=== PATIENT | male | born 1950 | race Caucasian/White ===

== ENCOUNTER → 2016-08-27 | Outpatient (CLI) | payer MEDICARE ==
[2016-08-27 08:46] LABS: ALANINE AMINOTRANSFERASE 22 U/L (21-72); ALKALINE PHOSPHATASE 72 U/L (38-126); ANION GAP 13 (5-19); ASPARTATE AMINO TRANSFERASE 16 U/L (17-59); BILIRUBIN,TOTAL 0.7 mg/dL (0.2-1.3); BLOOD UREA NITROGEN 18 mg/dL (7-20); CALCIUM 9.9 mg/dL (8.4-10.2); CARBON DIOXIDE 27 mmol/L (22-30); CHLORIDE 95 mmol/L (98-107); CHOLESTEROL 193.52 mg/dL (0-200); CREATININE RESULT 1.31 mg/dL (0.52-1.25); Direct HDL 37 mg/dL (>40); GLUCOSE 92 mg/dL (75-110); POTASSIUM 4.7 mmol/L (3.6-5.0); SODIUM 134.6 mmol/L (137-145); TOTAL PROTEIN 7.4 g/dL (6.3-8.2); TRIGLYCERIDES 347 mg/dL (<150)
[2016-08-27 08:57] LABS: DIRECT LDL 91 mg/dL (<100)
[2016-08-27 08:58] LABS: VLDL CHOLESTEROL 69.4 mg/dL (10-31)
== END ==
LOC: OD 07:18
PROVIDERS: ATTEND Internal Medicine
DX: I10 Essential (primary) hypertension (principal); E78.00 Pure hypercholesterolemia, unspecified; Z79.899 Other long term (current) drug therapy
CPT/HCPCS: 36415; 80053; 80061

== ENCOUNTER 2016-09-09 03:00 | Emergency (ER) | payer MEDICARE ==
[2016-09-09] MEDS ORDERED: NORMAL SALINE 1000 ML 1,000 ML IV ONE (03:33)
[2016-09-09 03:58] LABS: ABSOLUTE BASOPHILS # (AUTO) 0.1 10^3/uL (0.0-0.2); ABSOLUTE EOSINOPHILS # (AUTO) 0.3 10^3/uL (0.0-0.6); ABSOLUTE LYMPHOCYTES (AUTO) 2.3 10^3/uL (0.5-4.7); ABSOLUTE MONOCYTES (AUTO) 0.6 10^3/uL (0.1-1.4); ABSOLUTE NEUT (AUTO) 6.2 10^3/uL (1.7-8.2); BASOPHILS % (AUTO) 0.9 % (0-2); EOSINOPHILS % (AUTO) 3.6 % (0-6); HEMATOCRIT 37.8 % (37.9-51.0); HEMOGLOBIN 13.2 g/dL (13.5-17.0); HGB HCT DIFFERENCE 1.8; LYMPHOCYTES % (AUTO) 23.9 % (13-45); MEAN CORPUSCULAR HEMOGLOBIN 32.7 pg (27.0-33.4); MEAN CORPUSCULAR VOLUME 93 fl (80-97); MONOCYTES % (AUTO) 6.2 % (3-13); RED BLOOD COUNT 4.05 10^6/uL (4.35-5.55); RED CELL DISTRIBUTION WIDTH 12.5 % (11.5-14.0); SEGMENTED NEUTROPHILS % (AUTO) 65.4 % (42-78); WHITE BLOOD COUNT 9.6 10^3/uL (4.0-10.5)
--- NOTE | 2016-09-09 04:07 | ER Document Report ---
ED GI/ - General Mode of Arrival: Medic Information source: Patient TRAVEL OUTSIDE OF THE [place] IN LAST 30 DAYS: No - HPI Patient complains to provider of: Abdominal pain Associated symptoms: Other - See above <CORTNEY WHITE - Last Filed: 09/09/16 04:14> <ELLEN SIERRA - Last Filed: 09/09/16 06:23> - General Chief Complaint: Abdominal Pain Stated Complaint: ABDOMINAL PAIN Notes: Patient is a 66 year old male, with a past medical history including HTN and hernia, who presents to the emergency department complaining of abdominal pain onset last night. Patient states that he had some beef stew last night and then began vomiting and having abdominal pain located around his naval. Patient also reports having diarrhea even before the stew. Per EMS patient was dizzy and diaphoretic when they arrived, patient was given Zofran en route and patient states that he is feeling better. (CORTNEY WHITE) - Related Data Allergies/Adverse Reactions: No Known Allergies Allergy (Verified 09/09/16 04:19) Home Medications: Current Home Medications Aspirin [Aspirin EC] 1 tab PO DAILY PRN 09/09/16 [History] Lisinopril/Hydrochlorothiazide [Lisinopril-Hctz 20-12.5 mg Tab] 1 each PO DAILY 09/09/16 [History] Pravastatin Sodium [Pravastatin Sodium] 1 tab PO DAILY 09/09/16 [History] Past Medical History - General Information source: Patient - Social History Smoking Status: Current Every Day Smoker Frequency of alcohol use: None Family History: Reviewed & Not Pertinent - Past Medical History Cardiac Medical History: Reports: Hx Hypercholesterolemia Past Surgical History: Reports: Hx Appendectomy, Hx Cholecystectomy - Immunizations Hx Diphtheria, Pertussis, Tetanus Vaccination: Yes Hx Pneumococcal Vaccination: 07/28/12 <CORTNEY WHITE - Last Filed: 09/09/16 04:14> Review of Systems - Review of Systems Constitutional: See HPI, Diaphoresis EENT: No symptoms reported Cardiovascular: See HPI, Dizziness Respiratory: No symptoms reported Gastrointestinal: See HPI, Abdominal pain, Diarrhea, Vomiting Genitourinary: No symptoms reported Male Genitourinary: No symptoms reported Musculoskeletal: No symptoms reported Skin: No symptoms reported Hematologic/Lymphatic: No symptoms reported Neurological/Psychological: No symptoms reported -: Yes All other systems reviewed and negative <CORTNEY WHITE - Last Filed: 09/09/16 04:14> Physical Exam - Vital signs Interpretation: Normal - General General appearance: Appears well, Alert - HEENT Head: Normocephalic, Atraumatic - Respiratory Respiratory status: No respiratory distress Chest status: Nontender Breath sounds: Normal Chest palpation: Normal - Cardiovascular Rhythm: Regular Heart sounds: Normal auscultation Murmur: No - Abdominal Inspection: Normal Distension: No distension Bowel sounds: Normal Tenderness: Tender - Tenderness to palpation to the umbilicus, hernia present no evidence of incarceration Organomegaly: No organomegaly - Extremities General upper extremity: Normal inspection General lower extremity: Normal inspection - Neurological Neuro grossly intact: Yes Cognition: Normal Orientation: AAOx4 [place] Coma Scale Eye Opening: Spontaneous [place] Coma Scale Verbal: Oriented [place] Coma Scale Motor: Obeys Commands Dede Coma Scale Total: 15 Speech: Normal - Psychological Associated symptoms: Normal affect, Normal mood - Skin Skin Temperature: Warm Skin Moisture: Dry Skin Color: Normal <CORTNEY WHITE - Last Filed: 09/09/16 04:14> Course - Laboratory Result Diagrams: 09/09/16 03:40 09/09/16 03:40 <CORTNEY WHITE - Last Filed: 09/09/16 04:14> - Laboratory Result Diagrams: 09/09/16 03:40 09/09/16 03:40 <ELLEN SIERRA - Last Filed: 09/09/16 06:23> - Re-evaluation Re-evalutation: 09/09/16 06:20 Patient comes in for some periumbilical pain, vomiting and diarrhea. Patient has no abdominal pain or TTP at this time. Feels better after 1 dose of Zofran from EMS. Is taking by mouth. Blood work within normal limits. Patient will be discharged home and is to follow-up with his doctor. Return if any worsening or concerning symptoms. Understands and agrees with plan. Stable for discharge. (ELLEN SIERRA) - Vital Signs Vital signs: Temp Pulse Resp BP Pulse Ox 97.6 F 15 115/81 99 09/09/16 03:33 09/09/16 05:01 09/09/16 05:01 09/09/16 05:01 (CORTNEY WHITE) (ELLEN SIERRA) - Laboratory Laboratory results interpreted by me: 02/13/17 03:40 RBC 4.05 L Hgb 13.2 L Hct 37.8 L (CORTNEY WHITE) (ELLEN SIERRA) Discharge <CORTNEY WHITE - Last Filed: 09/09/16 04:14> <ELLEN SIERRA - Last Filed: 09/09/16 06:23> - Discharge Clinical Impression: Vomiting Qualifiers: Vomiting type: unspecified Vomiting Intractability: non-intractable Nausea presence: with nausea Qualified Code(s): R11.2 - Nausea with vomiting, unspecified Abdominal pain Qualifiers: Abdominal location: periumbilical Qualified Code(s): R10.33 - Periumbilical pain Diarrhea Qualifiers: Diarrhea type: unspecified type Qualified Code(s): R19.7 - Diarrhea, unspecified Condition: Stable Disposition: HOME, SELF-CARE Instructions: Abdominal Pain ([facility]), Vomiting ([facility]), Diarrhea, Nonspecific ([facility]) Referrals: MALAIKA MOURA MD [Primary Care Provider] - Follow up as needed Scribe Attestation: 09/09/16 06:21 I personally performed the services described in the documentation, reviewed and edited the documentation which was dictated to the scribe in my presence, and it accurately records my words and actions. (ELLEN SIERRA) Scribe Documentation - Scribe Written by Scribe:: pedrito Odonnell, 09/09/16, 0413 acting as scribe for :: Federico <CORTNEY WHITE - Last Filed: 09/09/16 04:14>
[2016-09-09 04:12] LABS: PROTHROMBIN TIME 12.7 SEC (11.4-15.4)
[2016-09-09 05:00] LABS: ALANINE AMINOTRANSFERASE 22 U/L (21-72); ALBUMIN 3.2 g/dL (3.5-5.0); ALKALINE PHOSPHATASE 60 U/L (38-126); ASPARTATE AMINO TRANSFERASE 12 U/L (17-59); BILIRUBIN,TOTAL 0.5 mg/dL (0.2-1.3); BLOOD UREA NITROGEN 19 mg/dL (7-20); CALCIUM 9.2 mg/dL (8.4-10.2); CREATININE RESULT 1.26 mg/dL (0.52-1.25); GLUCOSE 98 mg/dL (75-110); LIPASE 210.7 U/L (23-300); POTASSIUM 4.3 mmol/L (3.6-5.0); TOTAL PROTEIN 6.3 g/dL (6.3-8.2)
[2016-09-09 05:42] LABS: APPEARANCE,URINE CLEAR; BILIRUBIN,URINE NEGATIVE (NEGATIVE); GLUCOSE, URINE NEGATIVE (NEGATIVE); KETONES,URINE NEGATIVE (NEGATIVE); LEUKOCYTE ESTERASE,URINE NEGATIVE (NEGATIVE); NITRITE,URINE NEGATIVE (NEGATIVE); PROTEIN,URINE NEGATIVE (NEGATIVE); UROBILINOGEN,URINE NEGATIVE mg/dL (<2.0)
[2016-09-09 05:43] LABS: URINE SPECIFIC GRAVITY 1.004
[2016-09-09] MEDS ORDERED: ONDANSETRON ODT 4 MG TAB (6 TAB/DSPK) PO PRN (06:21)
[2016-09-09 06:35] LABS: ANION GAP 6 (5-19); CARBON DIOXIDE 27 mmol/L (22-30); CHLORIDE 100 mmol/L (98-107); SODIUM 133.2 mmol/L (137-145)
[2016-09-09 07:13] VITALS: BP 116/77
--- NOTE | 2016-09-11 00:05 | EKG REPORT ---
SEVERITY:- ABNORMAL ECG - SINUS RHYTHM MULTIPLE ATRIAL PREMATURE COMPLEXES : Confirmed by: Sho Larry 11-Sep-2016 00:04:37
== END 2016-09-09 07:15 | disposition home or self-care (01) ==
LOC: ER 03:00
DX: R10.33 Periumbilical pain (principal); I10 Essential (primary) hypertension; R11.10 Vomiting, unspecified; K46.9 Unspecified abdominal hernia without obstruction or gangrene; R19.7 Diarrhea, unspecified; R61 Generalized hyperhidrosis; R42 Dizziness and giddiness; F17.200 Nicotine dependence, unspecified, uncomplicated; Z90.49 Acquired absence of other specified parts of digestive tract; Z87.19 Personal history of other diseases of the digestive system
CPT/HCPCS: 93005; 99284; 96360; 36415; 83690; 85025; 85610; 80053; 81001; 93010; J7030; A9270

== ENCOUNTER 2016-11-01 11:51 | Inpatient (IN) | payer MEDICARE ==
[2016-11-01] MEDS ORDERED: NORMAL SALINE 1000 ML 1,000 ML IV ONE ×2 (12:25→14:07)
--- NOTE | 2016-11-01 13:17 | ER Document Report ---
ED General - General Chief Complaint: Shortness Of Breath Stated Complaint: VOMITING Time seen by provider: 13:17 Mode of Arrival: Ambulatory Information source: Patient Notes: 66-year-old male with vomiting and diarrhea for 6 days. This morning after vomiting 3 times and having 3 episodes of diarrhea he felt very weak, dizzy while he was on the stairs, and shortness of breath. He was told by his doctor 2 days ago that he had a viral intestinal infection. No recent antibiotics. No history of Crohn's, colitis, diverticulitis. No fever or chills. No chest pain. Mild abdominal discomfort. History of appendectomy and cholecystectomy. History of hypertension and hyperlipidemia . He takes lisinopril/HCTZ., And Pravastatin. TRAVEL OUTSIDE OF THE [place] IN LAST 30 DAYS: No - Related Data Allergies/Adverse Reactions: No Known Allergies Allergy (Verified 11/01/16 11:56) Home Medications: Current Home Medications Lisinopril/Hydrochlorothiazide [Zestoretic 20-12.5 mg Tablet] 1 tab PO DAILY 02/10 [History] Pravastatin Sodium [Pravachol] 20 mg PO QPM 11/01/16 [History] Past Medical History - General Information source: Patient - Social History Smoking Status: Current Every Day Smoker Frequency of alcohol use: None Drug Abuse: None Lives with: Alone Family History: Reviewed & Not Pertinent Patient has suicidal ideation: No Patient has homicidal ideation: No - Past Medical History Cardiac Medical History: Reports: Hx Hypercholesterolemia, Hx Hypertension Renal/ Medical History: Denies: Hx Peritoneal Dialysis Past Surgical History: Reports: Hx Appendectomy, Hx Cholecystectomy - Immunizations Hx Diphtheria, Pertussis, Tetanus Vaccination: Yes Hx Pneumococcal Vaccination: 07/28/12 Review of Systems - Review of Systems Constitutional: See HPI EENT: No symptoms reported Cardiovascular: No symptoms reported Respiratory: No symptoms reported Gastrointestinal: See HPI Genitourinary: No symptoms reported Male Genitourinary: No symptoms reported Musculoskeletal: No symptoms reported Skin: No symptoms reported Hematologic/Lymphatic: No symptoms reported Neurological/Psychological: No symptoms reported Physical Exam - Vital signs Vitals: Temp Pulse Resp BP Pulse Ox 97.4 F 59 L 16 110/64 100 11/01/16 11:57 11/01/16 11:57 11/01/16 11:57 11/01/16 11:57 11/01/16 11:57 Interpretation: Normal - General General appearance: Alert In distress: None - HEENT Head: Normocephalic, Atraumatic Eyes: Normal Conjunctiva: Normal Pupils: PERRL Mucous membranes: Normal Pharynx: Normal Neck: Supple. No: Lymphadenopathy - Respiratory Respiratory status: No respiratory distress Chest status: Nontender Breath sounds: Normal Chest palpation: Normal - Cardiovascular Rhythm: Regular Heart sounds: Normal auscultation Murmur: No - Abdominal Inspection: Normal Distension: No distension Bowel sounds: Normal Tenderness: Tender - Mild right middle to lower quadrant Organomegaly: No organomegaly - Back Back: Normal, Nontender. No: CVA tenderness - Extremities General upper extremity: Normal inspection, Nontender, Normal color, Normal ROM , Normal temperature General lower extremity: Normal inspection, Nontender, Normal color, Normal ROM , Normal temperature, Normal weight bearing. No: Eitan's sign - Neurological Neuro grossly intact: Yes Cognition: Normal Orientation: AAOx4 [place] Coma Scale Eye Opening: Spontaneous [place] Coma Scale Verbal: Oriented [place] Coma Scale Motor: Obeys Commands [place] Coma Scale Total: 15 Speech: Normal Motor strength normal: LUE, RUE, LLE, RLE Sensory: Normal - Psychological Associated symptoms: Normal affect, Normal mood - Skin Skin Temperature: Warm Skin Moisture: Dry Skin Color: Normal Skin irregularity: negative: Rash Course - Re-evaluation Re-evalutation: 11/01/16 14:[address] Candelario and he recommended admission and I spoke to Dr. Morrison who will admit the patient for observation. 11/02/16 10:14 - Vital Signs Vital signs: Temp Pulse Resp BP Pulse Ox 97.7 F 60 16 120/60 100 11/02/16 07:25 11/02/16 07:25 11/02/16 07:25 11/02/16 07:25 11/02/16 07:25 - Laboratory Result Diagrams: 11/01/16 12:43 11/02/16 01:47 Laboratory results interpreted by me: 11/01/16 11/01/16 11/01/16 12:43 12:43 13:09 Seg Neutrophils % 41.7 L Sodium 124.7 L Chloride 87 L Creatine Kinase 324 H Urine Ketones TRACE H - EKG Interpretation by Me EKG shows normal: Sinus rhythm Rhythm: NSR, APC's Discharge - Discharge Clinical Impression: Vomiting and diarrhea, weak and dizzy, low chloride, Gait disturbance Syncopal episodes Qualifiers: Syncope type: unspecified Qualified Code(s): R55 - Syncope and collapse Admitting Provider: Hospitalist Unit Admitted: Telemetry
[2016-11-01 13:19] LABS: ABSOLUTE LYMPHOCYTES (AUTO) 2.1 10^3/uL (0.5-4.7); ABSOLUTE MONOCYTES (AUTO) 0.6 10^3/uL (0.1-1.4); BASOPHILS % (AUTO) 0.5 % (0-2); EOSINOPHILS % (AUTO) 0.2 % (0-6); HEMATOCRIT 41.3 % (37.9-51.0); HEMOGLOBIN 14.7 g/dL (13.5-17.0); HGB HCT DIFFERENCE 2.8; LYMPHOCYTES % (AUTO) 44.9 % (13-45); MEAN CORPUSCULAR HEMOGLOBIN 32.2 pg (27.0-33.4); MEAN CORPUSCULAR HGB CONC 35.7 g/dL (32.0-36.0); MEAN CORPUSCULAR VOLUME 90 fl (80-97); MONOCYTES % (AUTO) 12.7 % (3-13); RED BLOOD COUNT 4.57 10^6/uL (4.35-5.55); RED CELL DISTRIBUTION WIDTH 12.4 % (11.5-14.0); SEGMENTED NEUTROPHILS % (AUTO) 41.7 % (42-78); WHITE BLOOD COUNT 4.7 10^3/uL (4.0-10.5)
[2016-11-01 13:36] LABS: ALANINE AMINOTRANSFERASE 51 U/L (21-72); ALBUMIN 4.6 g/dL (3.5-5.0); ALKALINE PHOSPHATASE 87 U/L (38-126); ANION GAP 13 (5-19); ASPARTATE AMINO TRANSFERASE 51 U/L (17-59); BILIRUBIN,DIRECT 0.3 mg/dL (0.0-0.4); BILIRUBIN,TOTAL 0.6 mg/dL (0.2-1.3); BLOOD UREA NITROGEN 14 mg/dL (7-20); CALCIUM 9.7 mg/dL (8.4-10.2); CARBON DIOXIDE 25 mmol/L (22-30); CHLORIDE 87 mmol/L (98-107); CREATINE KINASE 324 U/L (55-170); CREATININE RESULT 0.97 mg/dL (0.52-1.25); GLUCOSE 110 mg/dL (75-110); LIPASE 217.7 U/L (23-300); POTASSIUM 3.6 mmol/L (3.6-5.0); SODIUM 124.7 mmol/L (137-145); TOTAL PROTEIN 7.8 g/dL (6.3-8.2)
[2016-11-01 13:46] LABS: APPEARANCE,URINE CLEAR; BILIRUBIN,URINE NEGATIVE (NEGATIVE); GLUCOSE, URINE NEGATIVE (NEGATIVE); KETONES,URINE TRACE mg/dL (NEGATIVE); LEUKOCYTE ESTERASE,URINE NEGATIVE (NEGATIVE); NITRITE,URINE NEGATIVE (NEGATIVE); PROTEIN,URINE NEGATIVE (NEGATIVE); UROBILINOGEN,URINE NEGATIVE mg/dL (<2.0)
[2016-11-01 13:49] LABS: TROPONIN I < 0.012 ng/mL
[2016-11-01] MEDS ORDERED: NORMAL SALINE 1000 ML 500 ML IV ONE (14:08)
[2016-11-01] MEDS ORDERED: ONDANSETRON 4 MG TAB.RAPDIS PO ONE (14:16)
[2016-11-01] MEDS ORDERED: ONDANSETRON HCL INJ/PF 4 MG/2 ML SDV IV PRN (16:11)
--- NOTE | 2016-11-01 16:26 | PDOC H&P ---
History of Present Illness Admission Date/PCP: 11/01/16 15:27 CALVIN MARKS MD Patient complains of: Nausea and vomiting History of Present Illness: NADINE MUKHERJEE is a 66 year old male, with history of hypertension and hyperlipidemia has been sick with nausea and vomiting and diarrhea for the past week. There is no recent antibiotic intake, nor travel. Patient reports not being exposed to someone sick with diarrhea. About a week ago patient after eating at [facility] started to develop abdominal cramping and pain with subsequent nausea and vomiting. Patient a previous family but they ate something different and they don't have symptoms. Symptoms persisted with associated low-grade fever with some soreness in the throat due to vomiting. Subsequently the patient developed progressive weakness and decrease in appetite. There is no melena hematochezia or hematemesis noted. The patient's nausea and vomiting is improving, as well as the diarrhea and abdominal pain, however he started feeling lightheaded and dizzy and therefore he presents to the hospital for evaluation. In the emergency room serum sodium was low at 124 and the patient was referred for admission. Past Medical History Past Medical History: Medication reconciliation pending verification from the patient's pharmacist Cardiac Medical History: Reports: Hyperlipidema, Hypertension Infectious Medical History: Reports: Other - Childhood polio Past Surgical History Past Surgical History: Reports: Appendectomy, Cholecystectomy Social History Information Source: Patient Smoking Status: Current Some Day Smoker Frequency of Alcohol Use: None Hx Recreational Drug Use: No Drugs: None Hx Prescription Drug Abuse: No Family History Family History: Hypertension Parental Family History Reviewed: Yes Children Family History Reviewed: Yes Sibling(s) Family History Reviewed.: Yes Medication/Allergy Allergies/Adverse Reactions: No Known Allergies Allergy (Verified 11/01/16 11:56) Review of Systems Constitutional: PRESENT: chills - Occasional, fever(s) - Low grade but improving , headache(s) - Occasional, weakness - Generalized. ABSENT: night sweats, weight gain, weight loss Eyes: ABSENT: visual disturbances Ears: ABSENT: hearing changes Nose, Mouth, and Throat: PRESENT: sore throat - Improving Cardiovascular: ABSENT: chest pain, dyspnea on exertion, edema, orthropnea, palpitations Respiratory: PRESENT: cough - Occasional. ABSENT: dyspnea, hemoptysis Gastrointestinal: PRESENT: abdominal pain, diarrhea, nausea, vomiting. ABSENT: coffee ground emesis, constipation, hematemesis, hematochezia, melena Genitourinary: ABSENT: difficulty urinating, dysuria, hematuria Musculoskeletal: ABSENT: joint swelling Integumentary: ABSENT: rash, wounds Neurological: PRESENT: weakness - Generalized. ABSENT: abnormal gait, abnormal speech, confusion, dizziness, focal weakness, syncope Psychiatric: ABSENT: anxiety, depression, homidical ideation, suicidal ideation Endocrine: ABSENT: cold intolerance, heat intolerance, polydipsia, polyuria Hematologic/Lymphatic: ABSENT: easy bleeding, easy bruising Physical Exam Vital Signs: Temp Pulse Resp BP Pulse Ox 98.4 F 59 L 16 110/64 100 11/01/16 15:54 11/01/16 11:57 11/01/16 11:57 11/01/16 11:57 11/01/16 11:57 General appearance: PRESENT: no acute distress, cooperative, thin Head exam: PRESENT: atraumatic, normocephalic Eye exam: PRESENT: conjunctiva pink, EOMI, PERRLA. ABSENT: scleral icterus Ear exam: PRESENT: normal external ear exam, other - Cerumen on both ear canal. ABSENT: drainage Mouth exam: PRESENT: dry mucosa, neck supple, tongue midline Throat exam: ABSENT: post pharyngeal erythema, tonsillar erythema Neck exam: ABSENT: carotid bruit, JVD, lymphadenopathy, thyromegaly Respiratory exam: PRESENT: clear to auscultation mt. ABSENT: rales, rhonchi, wheezes Cardiovascular exam: PRESENT: RRR, +S1, +S2. ABSENT: diastolic murmur, gallop, rubs, systolic murmur Pulses: PRESENT: normal dorsalis pedis pul Vascular exam: PRESENT: normal capillary refill GI/Abdominal exam: PRESENT: hyperactive bowel sounds, soft, tenderness - Minimal generalized. ABSENT: distended, guarding, mass, organolmegaly, rebound Rectal exam: PRESENT: deferred Extremities exam: PRESENT: full ROM. ABSENT: calf tenderness, clubbing, pedal edema Neurological exam: PRESENT: alert, awake, oriented to person, oriented to place , oriented to time, oriented to situation Psychiatric exam: PRESENT: appropriate affect, normal mood. ABSENT: homicidal ideation, suicidal ideation Skin exam: PRESENT: dry, intact, warm. ABSENT: cyanosis, rash Results Impressions: Chest X-Ray 11/01/16 12:19 IMPRESSION: NO SIGNIFICANT RADIOGRAPHIC FINDING IN THE CHEST. Assessment & Plan - Diagnosis (1) Hyponatremia Is this a current diagnosis for this admission?: Yes (2) Vomiting and diarrhea Is this a current diagnosis for this admission?: Yes (3) Generalized abdominal pain Is this a current diagnosis for this admission?: Yes (4) Essential hypertension Is this a current diagnosis for this admission?: Yes (5) Hyperlipidemia Qualifiers: Hyperlipidemia type: unspecified Qualified Code(s): E78.5 - Hyperlipidemia, unspecified Is this a current diagnosis for this admission?: Yes (6) Migraine Is this a current diagnosis for this admission?: Yes - Time Time Spent: 30 to 50 Minutes - Plan Summary Plan Summary: Patient will be admitted to observation. We will hydrate the patient with normal saline. We will monitor serum sodiums serially. In the meantime we will just check stool culture as well as Clostridium difficile toxin. Patient may have infectious colitis, we will begin Flagyl and ciprofloxacin intravenously. DVT prophylaxis with Lovenox will be placed. Further testing depends on the initial evaluation and response to treatment as outlined above.
[2016-11-01 18:42] LABS: ANION GAP 13 (5-19); BLOOD UREA NITROGEN 12 mg/dL (7-20); CALCIUM 8.9 mg/dL (8.4-10.2); CARBON DIOXIDE 23 mmol/L (22-30); CHLORIDE 93 mmol/L (98-107); GLUCOSE 104 mg/dL (75-110); POTASSIUM 4.4 mmol/L (3.6-5.0)
[2016-11-01] MEDS: NORMAL SALINE 1000 ML 1,000 ML IV PRN (18:49)
[2016-11-01] MEDS: METRONIDAZOLE 500 MG/NS RTU 100 ML IV SCH ×2 (18:49→23:24)
[2016-11-01] MEDS: CIPROFLOXACIN 400 MG/D5W RTU 200 ML IV SCH (21:57)
[2016-11-01] MEDS: ACETAMINOPHEN 325 MG TABLET PO PRN (23:24)
[2016-11-02] MEDS ORDERED: BENZOCAINE/MENTHOL SORE THROAT LOZENGE BUCCAL PRN (01:57)
[2016-11-02 02:32] LABS: ANION GAP 10 (5-19); BLOOD UREA NITROGEN 11 mg/dL (7-20); CALCIUM 8.6 mg/dL (8.4-10.2); CARBON DIOXIDE 24 mmol/L (22-30); CHLORIDE 95 mmol/L (98-107); CREATININE RESULT 0.97 mg/dL (0.52-1.25); GLUCOSE 100 mg/dL (75-110); POTASSIUM 4.6 mmol/L (3.6-5.0)
[2016-11-02] MEDS ORDERED: LANSOPRAZOLE 30 MG TAB.RAP.DR PO SCH (06:00)
[2016-11-02] MEDS: METRONIDAZOLE 500 MG/NS RTU 100 ML IV SCH ×4 (06:12→23:55)
[2016-11-02] MEDS: NORMAL SALINE 1000 ML 1,000 ML IV PRN (06:14)
--- NOTE | 2016-11-02 06:17 | EKG REPORT ---
SEVERITY:- ABNORMAL ECG - SINUS RHYTHM MULTIPLE ATRIAL PREMATURE COMPLEXES : Confirmed by: Sho Larry 02-Nov-2016 06:17:04
[2016-11-02] MEDS: CIPROFLOXACIN 400 MG/D5W RTU 200 ML IV SCH ×2 (09:10→21:07)
[2016-11-02] MEDS: ENOXAPARIN SODIUM INJ 40 MG/0.4 ML DISP.SYRIN SUBCUT SCH (09:10)
--- NOTE | 2016-11-02 10:07 | PDOC PROGRESS REPORT ---
Subjective Progress Note for:: 11/02/16 Subjective:: Patient tolerated some oral intake, however he does not want gello nor yougart. Patient wanting to try more solid diet. There is no more diarrhea, still with some nausea, abdominal pain is less. No chills or fever. Physical Exam Vital Signs: Temp Pulse Resp BP Pulse Ox 97.7 F 60 16 120/60 100 11/02/16 07:25 11/02/16 07:25 11/02/16 07:25 11/02/16 07:25 11/02/16 07:25 Intake & Output 11/01/16 11/02/16 11/03/16 06:59 06:59 06:59 Intake Total 550 Balance 550 Weight 72.3 kg General appearance: PRESENT: no acute distress, cooperative Head exam: PRESENT: normocephalic Eye exam: PRESENT: EOMI, PERRLA Mouth exam: PRESENT: moist, neck supple Neck exam: ABSENT: JVD Respiratory exam: PRESENT: clear to auscultation mt Cardiovascular exam: PRESENT: RRR. ABSENT: gallop GI/Abdominal exam: PRESENT: hypoactive bowel sounds, soft, tenderness - Minimal discomfort to palpation periumbilically Extremities exam: ABSENT: pedal edema Neurological exam: PRESENT: alert, awake, oriented to person, oriented to place , oriented to time, oriented to situation Skin exam: PRESENT: dry, warm. ABSENT: cyanosis Results Laboratory Results: 11/01/16 11/02/16 11/02/16 17:48 01:47 01:47 Sodium 129.0 L 129.0 L Potassium 4.4 4.6 Chloride 93 L 95 L Carbon Dioxide 23 24 Anion Gap 13 10 BUN 12 11 Creatinine 0.90 0.97 Est GFR ( Amer) > 60 > 60 Est GFR (Non-Af Amer) > 60 > 60 Glucose 104 100 Calcium 8.9 8.6 TSH 1.76 Impressions: Chest X-Ray 11/01/16 12:19 IMPRESSION: NO SIGNIFICANT RADIOGRAPHIC FINDING IN THE CHEST. Assessment & Plan - Diagnosis (1) Hyponatremia Is this a current diagnosis for this admission?: Yes (2) Vomiting and diarrhea Is this a current diagnosis for this admission?: Yes (3) Generalized abdominal pain Is this a current diagnosis for this admission?: Yes (4) Essential hypertension Is this a current diagnosis for this admission?: Yes (5) Hyperlipidemia Qualifiers: Qualified Code(s): E78.5 - Hyperlipidemia, unspecified Is this a current diagnosis for this admission?: Yes (6) Migraine Is this a current diagnosis for this admission?: Yes - Time Time Spent with patient: 25-34 minutes - Plan Summary Plan Summary: Continue IV hydration, antibiotic, advance diet. Obtain CT of the abdomen and pelvis without contrast, recheck electrolytes in the morning. Serum sodium is improving. Continue supportive care. Discharge home when symptoms improve or tolerates oral intake.
[2016-11-02 10:10] LABS: ANION GAP 7 (5-19); BLOOD UREA NITROGEN 10 mg/dL (7-20); CALCIUM 8.9 mg/dL (8.4-10.2); CARBON DIOXIDE 27 mmol/L (22-30); CHLORIDE 97 mmol/L (98-107); CREATININE RESULT 0.91 mg/dL (0.52-1.25); GLUCOSE 102 mg/dL (75-110); POTASSIUM 4.3 mmol/L (3.6-5.0); SODIUM 130.9 mmol/L (137-145)
[2016-11-02] MEDS ORDERED: METOCLOPRAMIDE HCL INJ/PF 10 MG/2 ML SDV ONE (10:40)
[2016-11-02] MEDS ORDERED: METOCLOPRAMIDE HCL INJ/PF 10 MG/2 ML SDV IV PRN (10:42)
[2016-11-02] MEDS ORDERED: PANTOPRAZOLE SODIUM 40 MG VIAL IV ONE (11:30)
[2016-11-02] MEDS ORDERED: METOCLOPRAMIDE HCL INJ/PF 10 MG/2 ML SDV IV ONE (11:30)
[2016-11-02] MEDS: ACETAMINOPHEN 325 MG TABLET PO PRN ×2 (18:52→21:08)
[2016-11-02] MEDS: PANTOPRAZOLE SODIUM 40 MG VIAL IV SCH (21:08)
[2016-11-02] MEDS: METOCLOPRAMIDE HCL INJ/PF 10 MG/2 ML SDV IV PRN (21:33)
[2016-11-03 00:34] LABS: ANION GAP 8 (5-19); BLOOD UREA NITROGEN 11 mg/dL (7-20); CALCIUM 8.5 mg/dL (8.4-10.2); CARBON DIOXIDE 25 mmol/L (22-30); CHLORIDE 98 mmol/L (98-107); CREATINE KINASE 147 U/L (55-170); CREATININE RESULT 0.94 mg/dL (0.52-1.25); GLUCOSE 102 mg/dL (75-110); POTASSIUM 3.8 mmol/L (3.6-5.0); SODIUM 130.5 mmol/L (137-145)
[2016-11-03 00:47] LABS: CREATINE KINASE MB 0.62 ng/mL (<4.55)
[2016-11-03 00:48] LABS: TROPONIN I < 0.012 ng/mL
[2016-11-03] MEDS ORDERED: POTASSIUM CHLORIDE 20 MEQ/15 ML UDCUP PO ONE (01:45)
[2016-11-03] MEDS: METRONIDAZOLE 500 MG/NS RTU 100 ML IV SCH ×3 (05:24→18:09)
[2016-11-03 07:53] LABS: ANION GAP 9 (5-19); BLOOD UREA NITROGEN 8 mg/dL (7-20); CALCIUM 8.3 mg/dL (8.4-10.2); CARBON DIOXIDE 23 mmol/L (22-30); CHLORIDE 101 mmol/L (98-107); CREATININE RESULT 0.84 mg/dL (0.52-1.25); GLUCOSE 92 mg/dL (75-110); POTASSIUM 3.7 mmol/L (3.6-5.0); SODIUM 133.1 mmol/L (137-145)
[2016-11-03] MEDS: NORMAL SALINE 1000 ML 1,000 ML IV PRN (08:18)
[2016-11-03] MEDS: ENOXAPARIN SODIUM INJ 40 MG/0.4 ML DISP.SYRIN SUBCUT SCH (08:18)
--- NOTE | 2016-11-03 08:39 | EKG REPORT ---
SEVERITY:- ABNORMAL ECG - SINUS RHYTHM MULTIPLE ATRIAL PREMATURE COMPLEXES : Confirmed by: Sho Larry 03-Nov-2016 08:38:39
[2016-11-03] MEDS: METOCLOPRAMIDE HCL INJ/PF 10 MG/2 ML SDV IV PRN ×2 (09:16→18:09)
[2016-11-03] MEDS: CIPROFLOXACIN 400 MG/D5W RTU 200 ML IV SCH ×2 (09:19→22:53)
[2016-11-03] MEDS: METOPROLOL TARTRATE 25 MG TABLET PO SCH ×2 (09:21→22:53)
[2016-11-03] MEDS: ACETAMINOPHEN 325 MG TABLET PO PRN (09:22)
[2016-11-03] MEDS: PANTOPRAZOLE SODIUM 40 MG VIAL IV SCH ×2 (13:40→22:53)
--- NOTE | 2016-11-03 14:34 | PDOC DISCHARGE SUMMARY ---
General - Admit/Disc Date/PCP Admission Date/Primary Care Provider: 11/01/16 17:38 CALVIN MARKS MD Discharge Date: 11/03/16 - Discharge Diagnosis (1) Hyponatremia Is this a current diagnosis for this admission?: Yes (2) Vomiting and diarrhea Is this a current diagnosis for this admission?: Yes (3) Generalized abdominal pain Is this a current diagnosis for this admission?: Yes (4) Essential hypertension Is this a current diagnosis for this admission?: Yes (5) Hyperlipidemia Is this a current diagnosis for this admission?: Yes (6) Migraine Is this a current diagnosis for this admission?: Yes - Additional Information Discharge Diet: Other (Comments) - low-salt Discharge Activity: Activity As Tolerated, Balance Activity w/Rest Home Medications: Pravastatin Sodium [Pravachol] 20 mg PO QPM 11/01/16 Ciprofloxacin HCl [Cipro 500 mg Tablet] 500 mg PO BID #20 tablet 11/03/16 Metoprolol Tartrate [Lopressor 25 mg Tablet] 25 mg PO Q12 #60 tablet 11/03/16 Metronidazole [Flagyl 500 mg Tablet] 500 mg PO TID #30 tablet 11/03/16 Additional Information: Follow up final report of blood cultures as outpatient with primary care physician History of Present Illness Patient complains of: Nausea vomiting and diarrhea History of Present Illness: NADINE MUKHERJEE is a 66 year old male, with history of hypertension and hyperlipidemia has been sick with nausea and vomiting and diarrhea for the past week. There is no recent antibiotic intake, nor travel. Patient reports not being exposed to someone sick with diarrhea. About a week ago patient after eating at [facility] started to develop abdominal cramping and pain with subsequent nausea and vomiting. Patient a previous family but they ate something different and they don't have symptoms. Symptoms persisted with associated low-grade fever with some soreness in the throat due to vomiting. Subsequently the patient developed progressive weakness and decrease in appetite. There is no melena hematochezia or hematemesis noted. The patient's nausea and vomiting is improving, as well as the diarrhea and abdominal pain, however he started feeling lightheaded and dizzy and therefore he presents to the hospital for evaluation. In the emergency room serum sodium was low at 124 and the patient was referred for admission. Hospital Course Hospital Course: The patient was admitted to telemetry. The patient was started on IV fluids with normal saline. Serial sodium was monitored and it was improving. The patient was started on intravenous antibiotic for possible infectious diarrhea. After 48 hours of treatment the patient improved significantly. The diarrhea resolved, abdominal pain resolved. Diet was advanced and the patient tolerated it. He has a CT of the abdomen and pelvis which was negative for any abnormality acutely. He was advised to stop taking his PREETHI inhibitor and diuretic likely causing the hyponatremia. He was noted to have some PACs on the monitor, he was started on metoprolol for blood pressure control. Magnesium and potassium are normal. The rest of the hospital stays unremarkable. Physical Exam Vital Signs: Temp Pulse Resp BP Pulse Ox 97.5 F 93 16 119/63 100 11/03/16 12:00 11/03/16 12:00 11/03/16 12:00 11/03/16 12:00 11/03/16 12:00 Intake & Output 11/02/16 11/03/16 11/04/16 06:59 06:59 06:59 Intake Total 550 4840 Output Total 1600 Balance 550 3240 Weight 72.3 kg 69.3 kg General appearance: PRESENT: no acute distress, cooperative Head exam: PRESENT: normocephalic Eye exam: PRESENT: EOMI Mouth exam: PRESENT: moist, neck supple Neck exam: ABSENT: JVD Respiratory exam: PRESENT: clear to auscultation mt Cardiovascular exam: PRESENT: RRR. ABSENT: gallop GI/Abdominal exam: PRESENT: hyperactive bowel sounds, soft. ABSENT: distended, tenderness Extremities exam: ABSENT: pedal edema Neurological exam: PRESENT: alert, awake, oriented to person, oriented to place , oriented to time, oriented to situation Skin exam: PRESENT: dry, warm. ABSENT: cyanosis Results Laboratory Results: 11/03/16 06:45 11/03/16 11/03/16 00:01 06:45 Sodium 130.5 L 133.1 L Potassium 3.8 3.7 Chloride 98 101 Carbon Dioxide 25 23 Anion Gap 8 9 BUN 11 8 Creatinine 0.94 0.84 Est GFR ( Amer) > 60 > 60 Est GFR (Non-Af Amer) > 60 > 60 Glucose 102 92 Calcium 8.5 8.3 L Magnesium 2.0 11/03/16 11/03/16 00:01 00:01 Creatine Kinase 147 CK-MB (CK-2) 0.62 Troponin I < 0.012 Impressions: Chest X-Ray 11/01/16 12:19 IMPRESSION: NO SIGNIFICANT RADIOGRAPHIC FINDING IN THE CHEST. Abdomen/Pelvis CT 11/02/16 00:00 IMPRESSION: No acute abnormality in the abdomen or pelvis. Qualifiers PATEINT BEING DISCHARGED WITH ANY OF THE FOLLOWING DIAGNOSIS?: No Plan Discharge Plan: Follow-up with primary care physician in one week. Time Spent: Less than 30 Minutes
--- NOTE | 2016-11-03 16:56 | PDOC PROGRESS REPORT ---
Subjective Progress Note for:: 11/03/16 Subjective:: Patient reports that he feels better without any nausea and vomiting, abdominal pain resolved and diarrhea resolved. Tolerated oral intake well and wants to go home. Right after discharge getting out of the room he had an episode of vomiting. Physical Exam Vital Signs: Temp Pulse Resp BP Pulse Ox 97.5 F 93 16 119/63 100 11/03/16 15:21 11/03/16 15:21 11/03/16 15:21 11/03/16 15:21 11/03/16 15:21 Intake & Output 11/02/16 11/03/16 11/04/16 06:59 06:59 06:59 Intake Total 550 4840 Output Total 1600 Balance 550 3240 Weight 72.3 kg 69.3 kg General appearance: PRESENT: no acute distress, cooperative Head exam: PRESENT: normocephalic Eye exam: PRESENT: EOMI Mouth exam: PRESENT: moist, neck supple Neck exam: ABSENT: JVD Respiratory exam: PRESENT: clear to auscultation mt. ABSENT: rhonchi, wheezes Cardiovascular exam: PRESENT: RRR. ABSENT: gallop GI/Abdominal exam: PRESENT: soft. ABSENT: distended Extremities exam: ABSENT: pedal edema Neurological exam: PRESENT: alert, awake, oriented to situation Skin exam: PRESENT: dry, warm. ABSENT: cyanosis Results Laboratory Results: 11/03/16 06:45 11/03/16 11/03/16 00:01 06:45 Sodium 130.5 L 133.1 L Potassium 3.8 3.7 Chloride 98 101 Carbon Dioxide 25 23 Anion Gap 8 9 BUN 11 8 Creatinine 0.94 0.84 Est GFR ( Amer) > 60 > 60 Est GFR (Non-Af Amer) > 60 > 60 Glucose 102 92 Calcium 8.5 8.3 L Magnesium 2.0 11/03/16 11/03/16 00:01 00:01 Creatine Kinase 147 CK-MB (CK-2) 0.62 Troponin I < 0.012 Impressions: Chest X-Ray 11/01/16 12:19 IMPRESSION: NO SIGNIFICANT RADIOGRAPHIC FINDING IN THE CHEST. Abdomen/Pelvis CT 11/02/16 00:00 IMPRESSION: No acute abnormality in the abdomen or pelvis. Assessment & Plan - Diagnosis (1) Hyponatremia Is this a current diagnosis for this admission?: Yes (2) Vomiting and diarrhea Is this a current diagnosis for this admission?: Yes (3) Generalized abdominal pain Is this a current diagnosis for this admission?: Yes (4) Essential hypertension Is this a current diagnosis for this admission?: Yes (5) Hyperlipidemia Qualifiers: Hyperlipidemia type: unspecified Qualified Code(s): E78.5 - Hyperlipidemia, unspecified Is this a current diagnosis for this admission?: Yes (6) Migraine Is this a current diagnosis for this admission?: Yes - Time Time Spent with patient: 15-24 minutes - Plan Summary Plan Summary: We will hold discharge plan for now. We will recheck amylase and lipase, as well as liver function test. We will consult gastroenterology in the morning. I will put the patient on liquid diet. Continue intravenous proton pump inhibitor. Continue antibiotics intravenously.
[2016-11-03] MEDS ORDERED: DEXAMETHASONE SOD PHOS INJ 10 MG/1 ML VIAL IV ONE (17:15)
[2016-11-03 17:16] LABS: ABSOLUTE EOSINOPHILS # (AUTO) 0.1 10^3/uL (0.0-0.6); ABSOLUTE LYMPHOCYTES (AUTO) 2.1 10^3/uL (0.5-4.7); ABSOLUTE MONOCYTES (AUTO) 0.5 10^3/uL (0.1-1.4); ABSOLUTE NEUT (AUTO) 1.6 10^3/uL (1.7-8.2); BASOPHILS % (AUTO) 0.6 % (0-2); HEMATOCRIT 34.6 % (37.9-51.0); HGB HCT DIFFERENCE 2.3; LYMPHOCYTES % (AUTO) 48.2 % (13-45); MEAN CORPUSCULAR HEMOGLOBIN 32.2 pg (27.0-33.4); MEAN CORPUSCULAR HGB CONC 35.5 g/dL (32.0-36.0); MEAN CORPUSCULAR VOLUME 91 fl (80-97); MONOCYTES % (AUTO) 10.9 % (3-13); RED BLOOD COUNT 3.81 10^6/uL (4.35-5.55); RED CELL DISTRIBUTION WIDTH 12.3 % (11.5-14.0); SEGMENTED NEUTROPHILS % (AUTO) 38.3 % (42-78); WHITE BLOOD COUNT 4.3 10^3/uL (4.0-10.5)
[2016-11-03 17:22] LABS: HEMOGLOBIN 12.3 g/dL (13.5-17.0)
[2016-11-03 17:43] LABS: ALANINE AMINOTRANSFERASE 47 U/L (21-72); ALBUMIN 3.3 g/dL (3.5-5.0); ALKALINE PHOSPHATASE 69 U/L (38-126); AMYLASE 52 U/L (30-110); ASPARTATE AMINO TRANSFERASE 37 U/L (17-59); BILIRUBIN,DIRECT 0.2 mg/dL (0.0-0.4); BILIRUBIN,TOTAL 0.6 mg/dL (0.2-1.3); LIPASE 286.9 U/L (23-300); TOTAL PROTEIN 5.7 g/dL (6.3-8.2)
[2016-11-03] MEDS: CARBAMIDE PEROXIDE 6.5% OTIC SOLN 15 ML AU SCH ×2 (18:22→22:53)
[2016-11-04] MEDS: METRONIDAZOLE 500 MG/NS RTU 100 ML IV SCH ×2 (00:03→05:58)
[2016-11-04] MEDS: NORMAL SALINE 1000 ML 1,000 ML IV PRN (05:58)
[2016-11-04] MEDS: ENOXAPARIN SODIUM INJ 40 MG/0.4 ML DISP.SYRIN SUBCUT SCH (08:02)
[2016-11-04] MEDS: ACETAMINOPHEN 325 MG TABLET PO PRN (08:02)
[2016-11-04] MEDS: PANTOPRAZOLE SODIUM 40 MG VIAL IV SCH (10:12)
[2016-11-04] MEDS: METOPROLOL TARTRATE 25 MG TABLET PO SCH (10:12)
[2016-11-04] MEDS: CIPROFLOXACIN 400 MG/D5W RTU 200 ML IV SCH (10:13)
[2016-11-04] MEDS: CARBAMIDE PEROXIDE 6.5% OTIC SOLN 15 ML AU SCH (10:15)
--- NOTE | 2016-11-04 10:15 | PDOC PROGRESS REPORT ---
Subjective Progress Note for:: 11/04/16 Subjective:: Patient's discharge was held yesterday, due to nausea and vomiting, dizziness on standing up. Patient's liver function test was negative, lipase was normal, MRI of the brain did not reveal any acute abnormality. Patient had ringing of the ear, reportedly the vomiting resulted from dizziness when he started moving around. He was given Decadron, irrigation of the ear canals were done, and the patient's dizziness resolved, as well as the ringing on the ear. Patient now able to ambulate freely, without any symptoms. oil treater shows no significant tachyarrhythmias reported. Patient wanting to go home and just follow-up outpatient and workup outpatient in terms of GI. Physical Exam Vital Signs: Temp Pulse Resp BP Pulse Ox 97.9 F 59 L 18 127/77 H 99 11/04/16 07:48 11/04/16 07:48 11/04/16 07:48 11/04/16 07:48 11/04/16 07:48 Intake & Output 11/03/16 11/04/16 11/05/16 06:59 06:59 06:59 Intake Total 4840 3430 Output Total 1600 1950 Balance 3240 1480 Weight 69.3 kg 69.6 kg General appearance: PRESENT: no acute distress, cooperative Head exam: PRESENT: normocephalic Eye exam: PRESENT: EOMI Mouth exam: PRESENT: moist, neck supple Neck exam: ABSENT: JVD Respiratory exam: PRESENT: clear to auscultation mt. ABSENT: rhonchi, wheezes Cardiovascular exam: PRESENT: RRR. ABSENT: gallop GI/Abdominal exam: PRESENT: soft. ABSENT: distended, tenderness Extremities exam: ABSENT: pedal edema Neurological exam: PRESENT: alert, awake, oriented to person, oriented to place , oriented to time, oriented to situation Skin exam: PRESENT: dry, warm. ABSENT: cyanosis Results Laboratory Results: 11/03/16 17:01 11/03/16 06:45 11/03/16 11/03/16 17:01 17:01 WBC 4.3 RBC 3.81 L Hgb 12.3 L D Hct 34.6 L MCV 91 MCH 32.2 MCHC 35.5 RDW 12.3 Plt Count 163 Seg Neutrophils % 38.3 L Lymphocytes % 48.2 H Monocytes % 10.9 Eosinophils % 2.0 Basophils % 0.6 Absolute Neutrophils 1.6 L Absolute Lymphocytes 2.1 Absolute Monocytes 0.5 Absolute Eosinophils 0.1 Absolute Basophils 0.0 Total Bilirubin 0.6 AST 37 ALT 47 Alkaline Phosphatase 69 Total Protein 5.7 L Albumin 3.3 L Amylase 52 Lipase 286.9 11/03/16 11/03/16 00:01 00:01 Creatine Kinase 147 CK-MB (CK-2) 0.62 Troponin I < 0.012 Impressions: Chest X-Ray 11/01/16 12:19 IMPRESSION: NO SIGNIFICANT RADIOGRAPHIC FINDING IN THE CHEST. Abdomen/Pelvis CT 11/02/16 00:00 IMPRESSION: No acute abnormality in the abdomen or pelvis. Head MRI 11/03/16 00:00 IMPRESSION: Chronic ischemic changes. Assessment & Plan - Diagnosis (1) Hyponatremia Is this a current diagnosis for this admission?: Yes (2) Vomiting and diarrhea Is this a current diagnosis for this admission?: Yes (3) Generalized abdominal pain Is this a current diagnosis for this admission?: Yes (4) Vertigo Is this a current diagnosis for this admission?: Yes (5) Essential hypertension Is this a current diagnosis for this admission?: Yes (6) Hyperlipidemia Qualifiers: Hyperlipidemia type: unspecified Qualified Code(s): E78.5 - Hyperlipidemia, unspecified Is this a current diagnosis for this admission?: Yes (7) Migraine Is this a current diagnosis for this admission?: Yes - Time Time Spent with patient: 25-34 minutes - Plan Summary Plan Summary: Continued discharge plan as reported previously. We will add gastroenterology outpatient workup for endoscopic studies. Patient agreeable to the plan, we will proceed with discharge.
[2016-11-04 12:14] VITALS: BP 137/76
== END 2016-11-04 13:37 | disposition home or self-care (01) | DRG 641 ==
LOC: ER 11:51 → EH 15:27 → UNDOADMOB 15:27 → EH 16:05 → 5 17:28 → OBSVTOIN 17:38
DX: E87.1 Hypo-osmolality and hyponatremia (principal); A09 Infectious gastroenteritis and colitis, unspecified; I10 Essential (primary) hypertension; T50.2X5A Adverse effect of carbonic-anhydrase inhibitors, benzothiadiazides and other diuretics, initial encounter; E78.5 Hyperlipidemia, unspecified; T46.5X5A Adverse effect of other antihypertensive drugs, initial encounter; F17.200 Nicotine dependence, unspecified, uncomplicated; G43.909 Migraine, unspecified, not intractable, without status migrainosus; R11.2 Nausea with vomiting, unspecified; R10.84 Generalized abdominal pain; R42 Dizziness and giddiness; Z79.899 Other long term (current) drug therapy; Z86.12 Personal history of poliomyelitis; Z90.49 Acquired absence of other specified parts of digestive tract
CPT/HCPCS: 36415; 70551; 71020; 74176; 80048; 80053; 80076; 81001; 82150; 82272; 82550; 82553; 83690; 83735; 84443; 84484; 85025; 87040; 87045; 87077; 87186; 87205; 87493; 93005; 93010; 96360; 96361; 99285; G0378; J0744; J1100; J1650; J2405; J2765; J3490; J7030; S0119; S0164

== ENCOUNTER → 2017-10-23 | Outpatient (CLI) | payer MEDICARE ==
[2017-10-23 10:42] LABS: ABSOLUTE BASOPHILS # (AUTO) 0.1 10^3/uL (0.0-0.2); ABSOLUTE EOSINOPHILS # (AUTO) 0.3 10^3/uL (0.0-0.6); ABSOLUTE LYMPHOCYTES (AUTO) 2.2 10^3/uL (0.5-4.7); ABSOLUTE MONOCYTES (AUTO) 0.5 10^3/uL (0.1-1.4); ABSOLUTE NEUT (AUTO) 5.6 10^3/uL (1.7-8.2); BASOPHILS % (AUTO) 1.6 % (0-2); EOSINOPHILS % (AUTO) 3.5 % (0-6); HEMATOCRIT 38.7 % (37.9-51.0); HEMOGLOBIN 13.3 g/dL (13.5-17.0); LYMPHOCYTES % (AUTO) 24.7 % (13-45); MEAN CORPUSCULAR HEMOGLOBIN 31.8 pg (27.0-33.4); MEAN CORPUSCULAR HGB CONC 34.4 g/dL (32.0-36.0); MEAN CORPUSCULAR VOLUME 93 fl (80-97); MONOCYTES % (AUTO) 6.1 % (3-13); PLATELET COUNT 255 10^3/uL (150-450); RED BLOOD COUNT 4.19 10^6/uL (4.35-5.55); RED CELL DISTRIBUTION WIDTH 12.4 % (11.5-14.0); SEGMENTED NEUTROPHILS % (AUTO) 64.1 % (42-78); TOTAL CELLS COUNTED % (AUTO) 100 %; WHITE BLOOD COUNT 8.8 10^3/uL (4.0-10.5)
[2017-10-23 11:17] LABS: ALANINE AMINOTRANSFERASE 20 U/L (21-72); ALBUMIN 4.1 g/dL (3.5-5.0); ALKALINE PHOSPHATASE 73 U/L (38-126); ANION GAP 8 (5-19); ASPARTATE AMINO TRANSFERASE 15 U/L (17-59); BILIRUBIN,DIRECT 0.4 mg/dL (0.0-0.4); BILIRUBIN,TOTAL 0.6 mg/dL (0.2-1.3); BLOOD UREA NITROGEN 21 mg/dL (7-20); CALCIUM 9.7 mg/dL (8.4-10.2); CARBON DIOXIDE 28 mmol/L (22-30); CHLORIDE 97 mmol/L (98-107); CHOLESTEROL 170.03 mg/dL (0-200); GLUCOSE 84 mg/dL (75-110); POTASSIUM 4.5 mmol/L (3.6-5.0); SODIUM 132.8 mmol/L (137-145); TOTAL PROTEIN 7.1 g/dL (6.3-8.2); TRIGLYCERIDES 272 mg/dL (<150)
[2017-10-23 11:27] LABS: DIRECT LDL 89 mg/dL (<100)
[2017-10-23 11:33] LABS: VLDL CHOLESTEROL 54.4 mg/dL (10-31)
== END ==
LOC: OD 09:19
PROVIDERS: ATTEND Internal Medicine
DX: I10 Essential (primary) hypertension (principal); E78.00 Pure hypercholesterolemia, unspecified; Z79.899 Other long term (current) drug therapy
CPT/HCPCS: 36415; 80053; 80061; 85025